=== PATIENT | female | born 1995 | race Caucasian/White ===

== ENCOUNTER 2016-09-06 00:58 | Emergency (ER) | payer OTHER | END 2016-09-06 03:30 | disposition home or self-care (01) | LOC: ER1 00:58 | DX: S63.521A Sprain of radiocarpal joint of right wrist, initial encounter (principal); H61.23 Impacted cerumen, bilateral; X58.XXXA Exposure to other specified factors, initial encounter | CPT/HCPCS: 29125; 73110; 73130; 99283 ==

== ENCOUNTER 2021-04-20 19:32 | Emergency (ER) | payer OTHER ==
[~2021-04-20 19:32] MED LIST: MACROBID 100 M100 MG PO
[2021-04-20 20:39] LABS: HEMOGLOBIN 12.4 gm/dl (12.3-15.3); RED BLOOD COUNT 4.12 M/UL (4.00-5.10); WHITE BLOOD COUNT 14.5 K/UL (4.5-11.0)
[2021-04-20 21:07] LABS: BUN/CREATININE RATIO 12 (0-10)
[2021-04-22 21:08] LABS: CHLAMYDIA TRACHOMATIS, NAA Negative (Negative); NEISSERIA GONORRHOEAE, NAA Negative (Negative)
== END 2021-04-21 10:10 | disposition home or self-care (01) ==
LOC: ER1 19:32
PROVIDERS: Physician Assistant; Physician Assistant Medical
DX: D25.9 Leiomyoma of uterus, unspecified (principal); N93.8 Other specified abnormal uterine and vaginal bleeding; R10.2 Pelvic and perineal pain; Z20.822 Contact with and (suspected) exposure to COVID-19; F17.290 Nicotine dependence, other tobacco product, uncomplicated
CPT/HCPCS: 36415; 76830; 80053; 81001; 83605; 84703; 85025; 85610; 87086; 96374; 96375; 99284; J2270; J2405; J7030; Q9967